=== PATIENT | female | born 1955 ===

== ENCOUNTER → 2021-09-13 11:29 | Outpatient (BNVA) | payer MEDICARE, BC, SELFPAY | PROVIDERS: PCP Physician Assistant; Visit Provider Psychiatry & Neurology Neurology | DX: G35 Multiple sclerosis (principal); F02.81 Dementia in other diseases classified elsewhere, unspecified severity, with behavioral disturbance | CPT/HCPCS: 99212 ==

== ENCOUNTER → 2021-10-11 13:19 | Outpatient (BNVA) | payer MEDICARE, BC, SELFPAY | PROVIDERS: Visit Provider Psychiatry & Neurology Neurology | DX: Z13.89 Encounter for screening for other disorder (principal) | CPT/HCPCS: Q3014 ==

== ENCOUNTER 2023-04-22 12:34 | Outpatient (AMB) | payer MEDICARE, BC, SELFPAY ==
--- NOTE | 2023-04-22 12:35 | MHC.OFFVIS ---
Intake Vital Signs 04/22/23 12:36 BMI Reason not done Patient refused/unable BP 92/58 L Blood Pressure Location Rt brachial Position Sitting Pulse 65 Pulse Source Pulse Oximeter Pulse Oximetry (%) 96 Oxygen Delivery Method Room Air Intake Visit Reasons: follow up-CONFIRMED Intake Note: Pt presents as a f/u. 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 No new issues.I suggested quetsiapine for behavior issues - but her was concerned about side effects so did not start. she is less agitated now.. she was seeing Sarah WOODALL at [facility] for her MS . She was on Tysabri in 2019 and stopped as she had no response. 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 Her is her primary network operations project manager - she has no ENVIRONMENTAL PROJECTS ADVISOR services. Her family members help .she is totally dependant on ADLs. she has hallucinations, delusions, not oriented to person etc.she does not follow simple commands She is scheduled to see a dentist - wants to see if we can premedictae her. [facility] Medical History Behavior disturbance Dementia associated with multiple sclerosis Multiple sclerosis Surgical History Hx of tonsillectomy Family History Mother Rheumatoid arthritis Social History Alcohol intake: former Patient Tobacco Use Status: Former Tobacco user Tobacco use type: Cigarette Use of substances other than those prescribed or required for medical reasons: No Review of Systems Neuro Reports confusion Psych Reports confusion Physical Exam Vital Signs: Last Vital Signs Pulse 65 04/22/23 12:36 BP 92/58 L 04/22/23 12:36 Pulse Ox 96 04/22/23 12:36 Oxygen Delivery Method Room Air 04/22/23 12:36 Const General: no acute distress, alert, awake, anxious, combative and confusion Nutritional Appearance: thin Orientation/consciousness: confusion Neuro General: moves all extremities, confusion and Unable to assess gait Cognition (Neuro): abnormal cognition (cannot follow simple commands , very irritable ) Gait exam (Neuro): Unable to assess gait Psych Speech and movement: Slurred speech present Affect: Anxious affect present and Irritable affect present Attitude: Guarded attititude/behavior present Assessment & Plan Assessment & Plan (1) Dementia associated with other underlying disease with behavioral disturbance: Code(s): F02.818 - Dementia in other diseases classified elsewhere, unspecified severity, with other behavioral disturbance (2) Behavior disturbance: Code(s): F91.9 - Conduct disorder, unspecified (3) Dementia associated with multiple sclerosis: Code(s): G35 - Multiple sclerosis; F02.80 - Dementia in other diseases classified elsewhere, unspecified severity, without behavioral disturbance, psychotic disturbance, mood disturbance, and anxiety Plan This was a counseling predominated session Discussed [facility] plans with her .I will refer her for VNA services and evaluation for hospice services Orders: Referrals [facility] Referral F02.80 - Dementia in other diseases classified elsewhere, unspecified severity, without behavioral disturbance, psychotic disturbance, mood disturbance, and anxiety, F91.9 - Conduct disorder, unspecified, G35 - Multiple sclerosis Medications: New lorazepam 0.5 mg PO BID PRN 60 tabs 3RF anxiety Coding Level of Care Code Est Pt Level 4 (86844) Diagnoses Dementia associated with other underlying disease with behavioral disturbance F02.818 Behavior disturbance F91.9 Dementia associated with multiple sclerosis G35; F02.80
[2023-04-22 12:36] VITALS: BP 92/58; PULSE 65; O2SAT 96
== END 2023-04-22 13:04 | disposition home or self-care (01) ==
PROVIDERS: Visit Provider Psychiatry & Neurology Neurology
DX: G35 Multiple sclerosis (principal); F02.818 Dementia in other diseases classified elsewhere, unspecified severity, with other behavioral disturbance; F02.82 Dementia in other diseases classified elsewhere, unspecified severity, with psychotic disturbance
CPT/HCPCS: 99214

== ENCOUNTER → 2023-04-22 12:34 | Outpatient (BNVA) | payer MEDICARE, BC, SELFPAY | PROVIDERS: Visit Provider Psychiatry & Neurology Neurology | DX: G35 Multiple sclerosis (principal); F02.818 Dementia in other diseases classified elsewhere, unspecified severity, with other behavioral disturbance; F91.9 Conduct disorder, unspecified | CPT/HCPCS: 99212 ==